=== PATIENT | male | born 1970 | race African-American/Black ===

== ENCOUNTER 2018-11-18 15:51 | Emergency (ER) | payer MEDICAID ==
[~2018-11-18] VITALS: Ht 177.8 cm; Wt 109.1 kg
[2018-11-18] MEDS ORDERED: ONDANSETRON ODT 4 MG PO ONE (16:30)
[2018-11-18 16:49] LABS: ALANINE AMINOTRANSFERASE 18 U/L (12-78); ALBUMIN 3.9 g/dL (3.4-5.0); ANION GAP 8 mmol/L (5-15); CALCIUM 8.7 mg/dL (8.5-10.1); CHLORIDE 111 mmol/L (98-107); CREATININE 1.21 mg/dL (0.7-1.3); MEAN CORPUSCULAR HEMOGLOBIN 25.9 pg (27.5-34.5); MEAN CORPUSCULAR HGB CONC 31.5 g/dL (33.2-36.2); MEAN CORPUSCULAR VOLUME 82.1 fL (81-97); MEAN PLATELET VOLUME 9.1 fL (7.4-10.4); PLATELET COUNT 253 x10^3/uL (130-400); RED BLOOD COUNT 6.23 x10^6/uL (4.38-5.82); RED CELL DISTRIBUTION WIDTH 15.9 % (9.4-14.8)
[2018-11-18 16:51] LABS: ALKALINE PHOSPHATASE 77 U/L (45-117)
[2018-11-18 17:14] LABS: MD YES
[2018-11-18 17:17] LABS: BAND#(MANUAL) 0.19 x10^3/uL; BANDS%(MANUAL) 2 % (0-7); BASOS#(MANUAL) 0.09 x10^3/uL (0-0.1); BASOS% (MANUAL) 1 % (0-1); EOS#(MANUAL) 0.09 x10^3/uL (0.0-0.4); EOS% (MANUAL) 1 % (1-7); LYMPH#(MANUAL) 1.69 x10^3/uL (1-3.4); LYMPHS% (MANUAL) 18 % (22-44); MONOS#(MANUAL) 1.03 x10^3/uL (0.3-2.7); MONOS% (MANUAL) 11 % (2-9); SEGS% (MANUAL) 67 % (42-75)
[2018-11-18 17:18] LABS: <PLATELET ESTIMATE> ADEQUATE; <PLT MORPHOLOGY> NORMAL PLT MORPH; <RBC MORPHOLOGY> NORMAL
--- NOTE | 2018-11-18 17:30 | NUR ---
TO ROOM FROM LOBBY. NAD.
--- NOTE | 2018-11-18 17:34 | NUR ---
pt to room from lobby, changed into gown, responds approp to staff, NAD, comfort measures provided, call light within reach.
[2018-11-18] MEDS ORDERED: ONDANSETRON ODT 4 MG ONE (17:38)
[2018-11-18] MEDS ORDERED: MECLIZINE CHEWABLE 25 MG TAB ONE (17:43)
[2018-11-18] MEDS ORDERED: MECLIZINE CHEWABLE 25 MG TAB PO ONE (18:00)
--- NOTE | 2018-11-18 18:35 | NUR ---
pt states dizziness & nausea are better while at rest & with activity after meds, ERP aware.
[2018-11-18 18:54] VITALS: BP 135/93
== END 2018-11-18 18:58 | disposition home or self-care (01) ==
LOC: ED 18:15
DX: H81.10 Benign paroxysmal vertigo, unspecified ear (principal)
CPT/HCPCS: 36415; 80053; 85025; 93005; 99284; Q0162